=== PATIENT | male | born 1990 | race Hispanic/Latino ===

== ENCOUNTER 2018-07-26 07:05 | Inpatient (IN) | payer SELFPAY ==
[~2018-07-26] VITALS: Ht 170.2 cm; Wt 96.7 kg
[2018-07-26] MEDS ORDERED: DiphenhydrAMINE HCL 50 MG/ML VIAL ONE (07:47)
[2018-07-26] MEDS ORDERED: ACETAMINOPHEN 325 MG TAB ONE (07:47)
[2018-07-26] MEDS ORDERED: PROCHLORPERAZINE EDISYLATE 10 MG/2 ML VIAL ONE (07:48)
[2018-07-26 07:53] LABS: BASOPHILS % (AUTO) 0.6 % (0.0-5.0); EOSINOPHILS % (AUTO) 0.8 % (0.0-8.0); HEMATOCRIT 42.8 % (42-54); LYMPHOCYTES % (AUTO) 12.7 % (21.0-51.0); MEAN CORPUSCULAR HEMOGLOBIN 29.9 pg (27.0-33.0); MEAN CORPUSCULAR HGB CONC 34.5 g/dL (32.0-36.0); MEAN CORPUSCULAR VOLUME 86.7 fL (79-99); MONOCYTES % (AUTO) 4.5 % (3.0-13.0); NEUTROPHILS % (AUTO) 81.4 % (40.0-77.0); PLATELET COUNT (AUTO) 248 K/uL (130-400); RED BLOOD CELL COUNT(AUTO) 4.94 MIL/uL (4.50-6.20); RED CELL DISTRIBUTION WIDTH 12.5 % (11.0-15.5); WHITE BLOOD COUNT (AUTO) 11.1 K/uL (4.8-10.8)
[2018-07-26 08:10] LABS: RAPID GROUP A STREP NEGATIVE (NEGATIVE)
[2018-07-26 08:21] LABS: POTASSIUM 4.1 mmol/L (3.5-5.1)
[2018-07-26 08:28] LABS: ALBUMIN 4.3 g/dL (3.5-5.0); BILIRUBIN,TOTAL 0.3 mg/dL (0.2-1.0); INR 0.95 (0.85-1.15); PARTIAL THROMBOPLASTIN TIME 30.7 SEC (26.3-35.5); TOTAL PROTEIN, SERUM 8.1 g/dL (6.0-8.3)
[2018-07-26] MEDS ORDERED: LIDOCAINE HCL 1% 20 ML VIAL ONE (09:00)
[2018-07-26 09:58] LABS: APPEARANCE,CSF CLEAR (CLEAR); COLOR,CSF COLORLESS (COLORLESS); CSF TOTAL VOLUME 9.5 mL; CSF TUBE NUMBER 2; WHITE BLOOD CELL1,CSF 106 CMM (0-5)
[2018-07-26 09:59] LABS: GLUCOSE, CSF 60 mg/dL (40-70); RED BLOOD CELL1,CSF 7 CMM (0-0); TOTAL PROTEIN, CSF 100 mg/dL (15-45)
[2018-07-26 10:14] LABS: LYMPHOCYTES1,CSF 42 %; MONOCYTES1,CSF 12 %; NEUTROPHILS1,CSF 46 %
[2018-07-26] MEDS ORDERED: MORPHINE SULFATE 2 MG/ML 1ML SYG IV PRN (11:00)
[2018-07-26] MEDS ORDERED: ONDANSETRON HCL 4 MG/2 ML VIAL IV PRN (11:00)
[2018-07-26] MEDS ORDERED: ACETAMINOPHEN 325 MG TAB PO PRN (11:00)
[2018-07-26] MEDS ORDERED: VANCOMYCIN 1GM+NS 250ML 250 ML IV SCH (11:00)
[2018-07-26] MEDS ORDERED: HYDRALAZINE HCL 20 MG/ML VIAL IV PRN (11:00)
[2018-07-26] MEDS ORDERED: VANCOMYCIN PROTOCOL PER PHARMACY IV PRN (11:00)
[2018-07-26] MEDS ORDERED: ACETAMINOPHEN-CODEINE 300/30MG TAB PO PRN (11:00)
[2018-07-26] MEDS ORDERED: VANCOMYCIN PROTOCOL PER PHARMACY IV SCH (11:15)
[2018-07-26] MEDS ORDERED: VANCOMYCIN 1GM+NS 250ML 250 ML IV ONE (12:28)
[2018-07-26 15:00] VITALS: BP 142/66
[2018-07-26] MEDS: SODIUM CHLORIDE 0.9% 1000ML 1,000 ML IV SCH ×2 (16:16→23:59)
[2018-07-26] MEDS ORDERED: COMPOUND IV REFRIGERATED 1 EACH IVSOLN MISC PRN (16:30)
[2018-07-26 19:57] VITALS: BP 142/67
[2018-07-26] MEDS: CEFTRIAXONE SODIUM 1 GM IV SCH (20:19)
[2018-07-26] MEDS: FAMOTIDINE/PF 20 MG/2 ML VIAL IV SCH (20:19)
[2018-07-26] MEDS: VANCOMYCIN 1.5 GM in SODIUM CHLORIDE 0.9% 250 ML IV SCH (20:27)
[2018-07-27 00:37] VITALS: BP 125/67
[2018-07-27 04:24] VITALS: BP 128/64
[2018-07-27 06:06] LABS: HEMATOCRIT 39.8 % (42-54); MEAN CORPUSCULAR HEMOGLOBIN 29.4 pg (27.0-33.0); MEAN CORPUSCULAR VOLUME 86.4 fL (79-99); PLATELET COUNT (AUTO) 274 K/uL (130-400); RED CELL DISTRIBUTION WIDTH 12.7 % (11.0-15.5); WHITE BLOOD COUNT (AUTO) 8.8 K/uL (4.8-10.8)
[2018-07-27 08:00] VITALS: BP 149/76
[2018-07-27] MEDS: VANCOMYCIN 1.5 GM in SODIUM CHLORIDE 0.9% 250 ML IV SCH (09:26)
[2018-07-27] MEDS: FAMOTIDINE/PF 20 MG/2 ML VIAL IV SCH ×2 (09:27→20:23)
[2018-07-27] MEDS: CEFTRIAXONE SODIUM 1 GM IV SCH ×2 (09:29→20:23)
[2018-07-27] MEDS: SODIUM CHLORIDE 0.9% 1000ML 1,000 ML IV SCH ×2 (09:35→17:41)
[2018-07-27 11:00] VITALS: BP 139/58
--- NOTE | 2018-07-27 11:00 | NUR ---
DR BARRON CAME IN TO SEE THE PATIENT, HE SAID THAT THE PATIENT HAS MENINGITIS, THAT HE WILL WAIT FOR THE CULTURE TO DETERMINE THE TYPE.
--- NOTE | 2018-07-27 13:58 | NUR ---
CM INITIAL Met w pt, spouse, family at bedside, pt in no distress, droplet isolation education; lives w spouse iona who will provide transport home. Employed, [employer], no DME; no insurance,low income clinics discussed, pt not familiar will provide info. CM to follow. , Addendum: 07/27/18 at 1401 by SANCHEZ TELLEZ RN CM Amended: Links added.
[2018-07-27 16:00] VITALS: BP 132/66
--- NOTE | 2018-07-27 17:49 | NUR ---
RESTING COMFORTABLY, DENIES ANY PAIN. STABLE VITAL SIGNS.
--- NOTE | 2018-07-27 18:47 | NUR ---
CALL RECEIVED FROM THE LAB FOR POSITIVE ENTEROCOCUS FROM CSF PCR. DR PARISH WAS NOTIFIED. NO NEW ORDERS.
[2018-07-27 20:00] VITALS: BP 125/55
[2018-07-27] MEDS: VANCOMYCIN 1.75 GM in SODIUM CHLORIDE 0.9% 250 ML IV SCH (21:27)
[2018-07-28] VITALS: BP 129/50
[2018-07-28 04:00] VITALS: BP 127/56
[2018-07-28 08:00] VITALS: BP 126/60
[2018-07-28] MEDS: CEFTRIAXONE SODIUM 1 GM IV SCH (09:33)
[2018-07-28] MEDS: FAMOTIDINE/PF 20 MG/2 ML VIAL IV SCH (09:34)
[2018-07-28] MEDS: VANCOMYCIN 1.75 GM in SODIUM CHLORIDE 0.9% 250 ML IV SCH (09:36)
[2018-07-28] MEDS: SODIUM CHLORIDE 0.9% 1000ML 1,000 ML IV SCH (09:40)
[2018-07-28 11:37] VITALS: BP 133/73
[2018-07-28 16:29] VITALS: BP 133/68
== END 2018-07-28 18:45 | disposition home or self-care (01) | DRG 76 ==
LOC: EDH 07:05 → EDHIP 07:06 → 3CH 14:45
PROVIDERS: ADMIT Hospitalist; ATTEND Hospitalist
PROC: 00JU3ZZ Inspection of Spinal Canal, Percutaneous Approach (ICD-10-PCS; principal; 2018-07-26)
DX: A87.9 Viral meningitis, unspecified (principal); E66.9 Obesity, unspecified; Z72.0 Tobacco use; Z68.33 Body mass index [BMI] 33.0-33.9, adult
CPT/HCPCS: 36415; 70450; 80048; 80053; 80202; 82550; 82945; 84157; 85025; 85027; 85610; 85730; 87040; 87071; 87147; 87205; 87483; 87804; 87880; 89051; 99291; A4218; G0378; J0696; J0780; J1200; J3370; J3490; J7030